=== PATIENT | male | born 1960 | race Caucasian/White ===

== ENCOUNTER 2021-10-01 10:20 | Inpatient (IN) | payer OTHER ==
[~2021-10-01] VITALS: Ht 165.1 cm; Wt 64.4 kg
[2021-10-01 10:47] LABS: ABSOLUTE NEUTROPHILS 4.9 thou/uL (1.4-8.2); BASOPHILS 0.4 % (0.0-2.0); HEMATOCRIT 24.8 % (42.0-52.0); HEMOGLOBIN 8.3 gm/dL (14.0-18.0); LYMPHOCYTES 8.6 % (24.0-44.0); MCHC 33.3 g/dL (28.0-37.0); MCV 98.9 fL (80.0-100.0); MONOCYTES 9.2 % (1.0-8.0); PLATELET COUNT 36 thou/uL (150-400); POLYS 81.8 % (36.0-66.0); RBC 2.51 mil/uL (4.50-6.00); RDW 17.2 % (10.5-14.5)
[2021-10-01 11:04] LABS: APTT 29.6 Seconds (24.5-32.8); INR 1.44; PROTIME 15.4 Seconds (10.5-12.1)
--- NOTE | 2021-10-01 11:33 | EKG ---
[address] [address] ELECTROCARDIOGRAM REPORT Name: AMAYA MOSES Room #: [facility] M.R.#: [id number] Admission: Attend Phys: Discharge: Date of : 62 Report #: [id number] [facility] ED Test Date: 2021-10-01 Test Time: 10:35:13 Pat Name: AMAYA MOSES Department: Room: Gender: M General Partner: ms : 1960 Requested By: Gregory Boyer Order Number: [id number] MD: Herbert Romo Measurements Intervals [place] Rate: 121 P: 37 MI: 124 QRS: -9 QRSD: 86 T: 29 QT: 344 QTc: 488 Interpretive Statements Sinus tachycardia Borderline T wave abnormalities Borderline prolonged QT interval No previous ECG available for comparison Electronically Signed On 10-01-2021 11:32:57 [employer] by Herbert Romo [email or web address] <ELECTRONICALLY SIGNED> By: Herbert Romo MD, [facility] 10/01/21 1132 1035 1035 Herbert Romo MD, FACC /EPI
[2021-10-01 11:51] LABS: ALBUMIN 2.9 g/dL (3.4-5.0); CALCIUM 8.5 mg/dL (8.5-10.1); CREATININE 1.5 mg/dL (0.7-1.3); MAGNESIUM 1.6 mg/dL (1.8-2.4); TOTAL BILIRUBIN 3.7 mg/dL (0.2-1.0); TOTAL PROTEIN 5.8 g/dL (6.4-8.2)
[2021-10-01 13:50] VITALS: BP 123/76
[2021-10-01 13:59] VITALS: BP 101/58
[2021-10-01 14:30] VITALS: BP 113/66; BP 123/76
[2021-10-01 19:55] VITALS: BP 144/85
[2021-10-02] VITALS (7 sets, daily range): BP systolic 122–140; BP diastolic 65–83
[2021-10-02 04:50] LABS: MCH 33.6 pg (26.0-34.0); MCHC 33.8 g/dL (28.0-37.0); MCV 99.6 fL (80.0-100.0); RBC 1.67 mil/uL (4.50-6.00); RDW 17.1 % (10.5-14.5)
[2021-10-02 04:52] LABS: HEMATOCRIT 16.6 % (42.0-52.0); HEMOGLOBIN 5.6 gm/dL (14.0-18.0)
[2021-10-02 05:01] LABS: INR 1.57; PROTIME 16.7 Seconds (10.5-12.1)
[2021-10-02 05:22] LABS: ALBUMIN 2.5 g/dL (3.4-5.0); CALCIUM 6.9 mg/dL (8.5-10.1); CREATININE 1.2 mg/dL (0.7-1.3); POTASSIUM 3.4 mmol/L (3.5-5.1); TOTAL BILIRUBIN 3.2 mg/dL (0.2-1.0)
[2021-10-02 09:50] LABS: % SATURATION 48 % (20-39); IRON 84 ug/dL (65-175); TIBC 174 ug/dL (250-450)
[2021-10-02 16:34] LABS: HEMATOCRIT 26.8 % (42.0-52.0)
[2021-10-02 16:42] LABS: HEMOGLOBIN 8.8 gm/dL (14.0-18.0)
[2021-10-03 04:23] LABS: INR 1.57; PROTIME 16.7 Seconds (10.5-12.1)
[2021-10-03 04:28] LABS: HEMATOCRIT 27.5 % (42.0-52.0); HEMOGLOBIN 9.2 gm/dL (14.0-18.0); MCH 31.8 pg (26.0-34.0); MCHC 33.6 g/dL (28.0-37.0); RBC 2.91 mil/uL (4.50-6.00); RDW 20.8 % (10.5-14.5); WBC 2.8 thou/uL (4.0-11.0)
[2021-10-03 04:29] LABS: ALBUMIN 2.4 g/dL (3.4-5.0); CALCIUM 7.1 mg/dL (8.5-10.1); TOTAL BILIRUBIN 3.3 mg/dL (0.2-1.0); TOTAL PROTEIN 4.9 g/dL (6.4-8.2)
[2021-10-03 04:43] LABS: MCV 94.6 fL (80.0-100.0)
[2021-10-03 04:45] VITALS: BP 116/56
[2021-10-03 04:50] LABS: POTASSIUM 2.9 mmol/L (3.5-5.1)
[2021-10-03 07:36] VITALS: BP 119/62
[2021-10-03 09:33] LABS: SOURCE ABDOMINAL; TOTAL VOLUME 50 mL
[2021-10-03 09:34] LABS: CLARITY CLOUDY; COLOR LIGHT RED
[2021-10-03 09:43] LABS: BF NUCLEATED CELLS 63 /mm3; BF RBC 9229 /mm3
[2021-10-03 11:37] LABS: BF MACROPHAGE 60 %; BF NEUTROPHILS 3 %
[2021-10-03 11:45] VITALS: BP 118/83
[2021-10-03 14:08] LABS: IgG 705 mg/dL (603-1613)
[2021-10-03 19:37] VITALS: BP 113/62
[2021-10-03 20:18] LABS: MAGNESIUM 1.6 mg/dL (1.8-2.4)
[2021-10-03 20:23] LABS: POTASSIUM 2.7 mmol/L (3.5-5.1)
[2021-10-04 03:10] LABS: HEMATOCRIT 28.2 % (42.0-52.0); HEMOGLOBIN 9.7 gm/dL (14.0-18.0); MCH 32.4 pg (26.0-34.0); MCHC 34.4 g/dL (28.0-37.0); MCV 94.2 fL (80.0-100.0); RBC 2.99 mil/uL (4.50-6.00); RDW 20.2 % (10.5-14.5); WBC 3.1 thou/uL (4.0-11.0)
[2021-10-04 03:12] VITALS: BP 107/47
[2021-10-04 03:12] LABS: INR 1.51; PROTIME 16.1 Seconds (10.5-12.1)
[2021-10-04 03:20] LABS: ALBUMIN 2.6 g/dL (3.4-5.0); CALCIUM 7.1 mg/dL (8.5-10.1); CREATININE 0.9 mg/dL (0.7-1.3); TOTAL BILIRUBIN 3.3 mg/dL (0.2-1.0); TOTAL PROTEIN 5.3 g/dL (6.4-8.2)
[2021-10-04 03:35] LABS: POTASSIUM 2.9 mmol/L (3.5-5.1)
[2021-10-04 06:07] LABS: HAV IgM AB (ANTI-HAV IgM) Negative (Negative); HEPATITIS B SURFACE AG Negative (Negative); HEPATITIS C VIRUS AB <0.1 (0.0-0.9)
[2021-10-04 07:09] LABS: CERULOPLASMIN 20.3 mg/dL (16.0-31.0)
[2021-10-04 07:30] VITALS: BP 86146/8
[2021-10-04 11:00] VITALS: BP 143/88
[2021-10-04 19:06] LABS: ANA INTERPRETATION Negative (Negative)
[2021-10-04 19:39] VITALS: BP 125/78
[2021-10-05 03:41] VITALS: BP 154/91
[2021-10-05 04:20] LABS: CALCIUM 6.7 mg/dL (8.5-10.1); CREATININE 0.9 mg/dL (0.7-1.3); POTASSIUM 3.2 mmol/L (3.5-5.1)
[2021-10-05 05:01] LABS: HEMATOCRIT 28.6 % (42.0-52.0); HEMOGLOBIN 9.6 gm/dL (14.0-18.0); MCHC 33.5 g/dL (28.0-37.0); MCV 95.6 fL (80.0-100.0); RBC 2.99 mil/uL (4.50-6.00); RDW 19.4 % (10.5-14.5); WBC 2.9 thou/uL (4.0-11.0)
[2021-10-05 07:35] VITALS: BP 131/72
[2021-10-05 11:30] VITALS: BP 135/86
[2021-10-05 15:30] VITALS: BP 147/89
[2021-10-05 20:15] VITALS: BP 135/72
[2021-10-06 03:26] VITALS: BP 139/90
[2021-10-06 04:41] LABS: HEMATOCRIT 30.5 % (42.0-52.0); MCH 31.9 pg (26.0-34.0); MCHC 32.9 g/dL (28.0-37.0); MCV 96.8 fL (80.0-100.0); RBC 3.15 mil/uL (4.50-6.00); RDW 19.2 % (10.5-14.5)
[2021-10-06 05:06] LABS: CALCIUM 6.7 mg/dL (8.5-10.1); CREATININE 0.7 mg/dL (0.7-1.3); POTASSIUM 3.1 mmol/L (3.5-5.1)
[2021-10-06 07:35] VITALS: BP 135/82
[2021-10-06 09:22] LABS: SOURCE ABDOMINAL
[2021-10-06 11:30] VITALS: BP 129/80
[2021-10-06 12:06] LABS: BODY FLUID ALBUMIN 0.7 g/dL (Not Estab.); BODY FLUID AMYLASE 49 U/L (()); BODY FLUID GLUCOSE 130 mg/dL (()); BODY FLUID LDH 96 IU/L (()); BODY FLUID PROTEIN 1.3 g/dL (())
[2021-10-06 15:40] VITALS: BP 132/90
[2021-10-06 19:35] VITALS: BP 130/79
--- NOTE | 2021-10-10 11:22 | PATH ---
[facility] [address] [place] [address] PATHOLOGY RPT PROCEDURE Name: AMAYA MOSES Room #: 203-P [facility] M.R.#: [id number] Admission: 10/01/21 Date of : 62 Discharge: 10/07/21 Report #: [id number] Path Case #: [id number] Note [facility] Accession Number: [id number] TESTS RESULT FLAG UNITS REF RANGE LAB Clinician Provided Cytology Information No. of containers..01 Other (Miscellaneous) Source: 01 ABDOMINAL FLUID DIAGNOSIS: 02 ABDOMINAL FLUID NEGATIVE FOR MALIGNANT CELLS. Signed out by: 02 Fernando Lees MD, Pathologist NPI- [id number] Performed by: 01 Adolph Price, Steak Sauce Maker ([facility]) Gross description: 01 6ML, ORANGE, HAZY /LCS 10/06/2021 1730 Local FLAG LEGEND: L-Low Normal,H-High Normal,LL-Alert Low,HH-Alert High <-Panic Low,>-Panic High,A-Abnormal,AA-Critical Abnormal Performed at: [address] [place] [address] Maxime Jaimes MD, [address] [place] [phone] Fernando Lees MD, Specimen Comment: A courtesy copy of this report has been sent to [phone], [phone] Specimen Comment: [id number] Specimen Comment: Report sent to / DR LAKE Specimen Comment: A duplicate report has been generated due to demographic updates. Performed at: 01 [facility] [address] [place] [address] [address], [place], [place] [id number] MD Maxime Jaimes MD Phone: [phone]
== END 2021-10-07 | DRG 871 ==
LOC: ER 10:20 → 2N 11:57 → EROBS 11:57 → 2N 13:31
PROVIDERS: Emergency Medicine; Nurse Practitioner; Nurse Practitioner Family; ADMIT Hospitalist; ATTEND Hospitalist
PROC: 30233R1 Transfusion of Nonautologous Platelets into Peripheral Vein, Percutaneous Approach (ICD-10-PCS; principal; 2021-10-01)
PROC: 06L38CZ Occlusion of Esophageal Vein with Extraluminal Device, Via Natural or Artificial Opening Endoscopic (ICD-10-PCS; principal; 2021-10-01)
PROC: 30233N1 Transfusion of Nonautologous Red Blood Cells into Peripheral Vein, Percutaneous Approach (ICD-10-PCS; 2021-10-02)
PROC: 0W9G3ZZ Drainage of Peritoneal Cavity, Percutaneous Approach (ICD-10-PCS; 2021-10-03)
DX: A41.9 Sepsis, unspecified organism (principal); J18.9 Pneumonia, unspecified organism; K29.81 Duodenitis with bleeding; I85.11 Secondary esophageal varices with bleeding; D62 Acute posthemorrhagic anemia; E87.2 Acidosis; K76.6 Portal hypertension; F10.139 Alcohol abuse with withdrawal, unspecified; E44.0 Moderate protein-calorie malnutrition; D61.818 Other pancytopenia; I95.9 Hypotension, unspecified; K70.11 Alcoholic hepatitis with ascites; E87.6 Hypokalemia; R33.9 Retention of urine, unspecified; K80.20 Calculus of gallbladder without cholecystitis without obstruction; K70.31 Alcoholic cirrhosis of liver with ascites; R53.81 Other malaise; G89.29 Other chronic pain; M54.9 Dorsalgia, unspecified; G31.2 Degeneration of nervous system due to alcohol; K31.89 Other diseases of stomach and duodenum; Z20.822 Contact with and (suspected) exposure to COVID-19; K44.9 Diaphragmatic hernia without obstruction or gangrene; K22.2 Esophageal obstruction; Z85.46 Personal history of malignant neoplasm of prostate; Z68.23 Body mass index [BMI] 23.0-23.9, adult
CPT/HCPCS: 10081; 62110; 62900; 70005